=== PATIENT | female | born 1960 | race Hispanic/Latino ===

== ENCOUNTER 2021-03-18 09:14 | Inpatient (IN) | payer OTHER, SELFPAY ==
[~2021-03-18] VITALS: Ht 152.4 cm; Wt 60.1 kg
[2021-03-18 09:39] LABS: ABG BASE EXCESS 0.4 mmol/L (-2.0-3.0); ABG HCO3 21.6 mmol/L (21.0-28.0); ABG OXYGEN SATURATION 82.4 % (95.0-99.0); ABG PCO2 27 mmHg (32-45)
[2021-03-18 09:59] VITALS: BP 103/69
[2021-03-18 10:10] LABS: BASOPHILS % (AUTO) 0.7 % (0.0-5.0); EOSINOPHILS % (AUTO) 0.1 % (0.0-8.0); LYMPHOCYTES % (AUTO) 7.3 % (21.0-51.0); MEAN CORPUSCULAR HEMOGLOBIN 28.2 pg (27.0-33.0); MEAN CORPUSCULAR HGB CONC 34.4 g/dL (32.0-36.0); MEAN CORPUSCULAR VOLUME 82.1 fL (79-99); MONOCYTES % (AUTO) 6.5 % (3.0-13.0); NEUTROPHILS % (AUTO) 84.6 % (40.0-77.0); PLATELET COUNT (AUTO) 228 K/uL (130-400); RED BLOOD CELL COUNT(AUTO) 5.24 MIL/uL (4.00-5.50); WHITE BLOOD COUNT (AUTO) 7.2 K/uL (4.8-10.8)
[2021-03-18 10:20] LABS: CREATININE 0.9 mg/dL (0.5-1.5); POTASSIUM 4.8 mmol/L (3.5-5.1)
[2021-03-18] MEDS ORDERED: DEXAMETHASONE SOD PHOSPHATE 4 MG/ML 1ML VIAL ONE (10:20)
[2021-03-18] MEDS ORDERED: AZITHROMYCIN 500MG+NS 250ML 250 ML IV ONE (10:20)
[2021-03-18] MEDS ORDERED: CEFTRIAXONE 1G VIAL ONE (10:20)
[2021-03-18] MEDS ORDERED: 0.9% NACL 250ML IVPB ONE (10:30)
[2021-03-18] MEDS ORDERED: AZITHROMYCIN 500MG VIAL IVPB ONE (10:30)
[2021-03-18 10:33] LABS: ALBUMIN 2.9 g/dL (3.5-5.0); BILIRUBIN,TOTAL 0.7 mg/dL (0.2-1.0); TOTAL PROTEIN, SERUM 7.7 g/dL (6.0-8.3)
[2021-03-18 10:35] LABS: B-TYPE NATRIURETIC PEPTIDE < 5 pg/mL (0-100)
[2021-03-18] MEDS ORDERED: DEXAMETHASONE SOD PHOSPHATE 4 MG/ML 1ML VIAL IVP SCH (11:30)
[2021-03-18] MEDS ORDERED: CEFTRIAXONE 1G VIAL IVP ONE (11:30)
[2021-03-18] MEDS ORDERED: ONDANSETRON 4MG INJ IV PRN (12:00)
[2021-03-18] MEDS ORDERED: ACETAMINOPHEN 325 MG TAB PO PRN ×2 (12:00)
[2021-03-18] MEDS: CEFTRIAXONE 1G VIAL IVP SCH ×2 (12:23→13:03)
[2021-03-18] MEDS: DOXYCYCLINE 100MG+NS 250ML IV SCH (12:23)
[2021-03-18] MEDS: 0.9% NACL 250ML 250 ML IV SCH (12:23)
[2021-03-18] MEDS: SOLU-MEDROL 40MG VIAL IVP SCH ×2 (12:23→20:46)
[2021-03-18 15:20] VITALS: BP 110/61
[2021-03-18 16:00] VITALS: BP 110/61
[2021-03-18] MEDS: FAMOTIDINE 20MG VIAL IV SCH (20:47)
[2021-03-18] MEDS: ENOXAPARIN SODIUM 40 MG/0.4 ML SYRINGE SQ SCH (20:48)
[2021-03-18 21:00] VITALS: BP 99/55
[2021-03-18 22:00] VITALS: BP 97/57
[2021-03-18 23:00] VITALS: BP 93/58
[2021-03-19] VITALS (23 sets, daily range): BP systolic 92–114; BP diastolic 41–79
[2021-03-19] MEDS: DOXYCYCLINE 100MG+NS 250ML IV SCH ×3 (00:03→23:56)
[2021-03-19] MEDS: 0.9% NACL 250ML 250 ML IV SCH ×3 (00:03→23:56)
[2021-03-19] MEDS: SOLU-MEDROL 40MG VIAL IVP SCH ×3 (04:24→20:12)
[2021-03-19 04:29] LABS: BASOPHILS % (AUTO) 0.3 % (0.0-5.0); HEMATOCRIT 43.2 % (36-48); LYMPHOCYTES % (AUTO) 11.7 % (21.0-51.0); MEAN CORPUSCULAR HEMOGLOBIN 27.6 pg (27.0-33.0); MEAN CORPUSCULAR HGB CONC 32.9 g/dL (32.0-36.0); MONOCYTES % (AUTO) 5.2 % (3.0-13.0); NEUTROPHILS % (AUTO) 81.4 % (40.0-77.0); PLATELET COUNT (AUTO) 231 K/uL (130-400); RED BLOOD CELL COUNT(AUTO) 5.14 MIL/uL (4.00-5.50); RED CELL DISTRIBUTION WIDTH 13.8 % (11.0-15.5); WHITE BLOOD COUNT (AUTO) 6.3 K/uL (4.8-10.8)
[2021-03-19 04:39] LABS: ALBUMIN 2.3 g/dL (3.5-5.0); BILIRUBIN,TOTAL 0.5 mg/dL (0.2-1.0); CREATININE 0.8 mg/dL (0.5-1.5); CRP QUANTITATIVE 160.2 mg/L (0.00-9.0); POTASSIUM 4.2 mmol/L (3.5-5.1); TOTAL PROTEIN, SERUM 7.3 g/dL (6.0-8.3)
[2021-03-19] MEDS ORDERED: PHARMACY COMMUNICATION MISC SCH ×2 (09:00)
[2021-03-19] MEDS: ZINC SULFATE 220 CAPSULE PO SCH (09:37)
[2021-03-19] MEDS: ASCORBIC ACID 500 MG TAB PO SCH (09:37)
[2021-03-19] MEDS: ENOXAPARIN SODIUM 40 MG/0.4 ML SYRINGE SQ SCH ×2 (09:38→20:12)
[2021-03-19] MEDS: CEFTRIAXONE 1G VIAL IVP SCH ×2 (12:28→23:56)
[2021-03-19] MEDS ORDERED: COMPOUND IV REFRIGERATED 1 EACH IVSOLN MISC PRN (13:00)
[2021-03-19] MEDS ORDERED: REMDESIVIR (EUA) 520 200 MG in 0.9% NACL 250ML 250 ML IV ONE (13:00)
[2021-03-19] MEDS: BARICITINIB (EUA) 2 MG TABLET PO SCH (13:52)
[2021-03-19] MEDS: FAMOTIDINE 20MG VIAL IV SCH (20:12)
[2021-03-20] VITALS (18 sets, daily range): BP systolic 100–132; BP diastolic 60–98
[2021-03-20] MEDS: SOLU-MEDROL 40MG VIAL IVP SCH ×3 (04:07→20:16)
[2021-03-20 04:27] LABS: BASOPHILS % (AUTO) 0.2 % (0.0-5.0); HEMATOCRIT 36.5 % (36-48); LYMPHOCYTES % (AUTO) 7.5 % (21.0-51.0); MEAN CORPUSCULAR HGB CONC 33.7 g/dL (32.0-36.0); MONOCYTES % (AUTO) 5.9 % (3.0-13.0); NEUTROPHILS % (AUTO) 85.2 % (40.0-77.0); PLATELET COUNT (AUTO) 333 K/uL (130-400)
[2021-03-20 04:50] LABS: ALBUMIN 2.2 g/dL (3.5-5.0); BILIRUBIN,TOTAL 0.4 mg/dL (0.2-1.0); CREATININE 0.8 mg/dL (0.5-1.5); CRP QUANTITATIVE 72.9 mg/L (0.00-9.0); POTASSIUM 4.4 mmol/L (3.5-5.1); TOTAL PROTEIN, SERUM 6.6 g/dL (6.0-8.3)
[2021-03-20] MEDS: REMDESIVIR LABS MISC SCH (05:27)
[2021-03-20] MEDS: ENOXAPARIN SODIUM 40 MG/0.4 ML SYRINGE SQ SCH ×2 (09:01→20:15)
[2021-03-20] MEDS: ASCORBIC ACID 500 MG TAB PO SCH (09:01)
[2021-03-20] MEDS: BARICITINIB (EUA) 2 MG TABLET PO SCH (09:01)
[2021-03-20] MEDS: ZINC SULFATE 220 CAPSULE PO SCH (09:01)
[2021-03-20] MEDS: REMDESIVIR (EUA) 520 100 MG in 0.9% NACL 250ML 250 ML IV SCH (13:22)
[2021-03-20] MEDS: DOXYCYCLINE 100MG+NS 250ML IV SCH ×2 (13:22→23:38)
[2021-03-20] MEDS: 0.9% NACL 250ML 250 ML IV SCH ×2 (13:23→23:38)
[2021-03-20] MEDS: CEFTRIAXONE 1G VIAL IVP SCH ×2 (13:23→23:37)
[2021-03-20] MEDS: FAMOTIDINE 20MG VIAL IV SCH (20:16)
[2021-03-21 03:00] VITALS: BP 110/65
[2021-03-21] MEDS: SOLU-MEDROL 40MG VIAL IVP SCH ×3 (04:57→20:23)
[2021-03-21 05:35] LABS: BASOPHILS % (AUTO) 0.1 % (0.0-5.0); HEMATOCRIT 38.4 % (36-48); LYMPHOCYTES % (AUTO) 6.6 % (21.0-51.0); MEAN CORPUSCULAR HEMOGLOBIN 27.6 pg (27.0-33.0); MEAN CORPUSCULAR VOLUME 86.1 fL (79-99); MONOCYTES % (AUTO) 5.6 % (3.0-13.0); NEUTROPHILS % (AUTO) 86.9 % (40.0-77.0); PLATELET COUNT (AUTO) 364 K/uL (130-400); RED BLOOD CELL COUNT(AUTO) 4.46 MIL/uL (4.00-5.50); RED CELL DISTRIBUTION WIDTH 14.4 % (11.0-15.5); WHITE BLOOD COUNT (AUTO) 8.5 K/uL (4.8-10.8)
[2021-03-21 06:00] LABS: ALBUMIN 2.2 g/dL (3.5-5.0); BILIRUBIN,TOTAL 0.4 mg/dL (0.2-1.0); CREATININE 0.7 mg/dL (0.5-1.5); CRP QUANTITATIVE 46.7 mg/L (0.00-9.0); POTASSIUM 4.4 mmol/L (3.5-5.1); TOTAL PROTEIN, SERUM 6.4 g/dL (6.0-8.3)
[2021-03-21] MEDS: REMDESIVIR LABS MISC SCH (06:50)
[2021-03-21 08:10] VITALS: BP 122/72
[2021-03-21] MEDS: ASCORBIC ACID 500 MG TAB PO SCH (08:42)
[2021-03-21] MEDS: ZINC SULFATE 220 CAPSULE PO SCH (08:42)
[2021-03-21] MEDS: ENOXAPARIN SODIUM 40 MG/0.4 ML SYRINGE SQ SCH ×2 (08:43→20:23)
[2021-03-21] MEDS: BARICITINIB (EUA) 2 MG TABLET PO SCH (10:25)
[2021-03-21 12:18] VITALS: BP 124/75
[2021-03-21] MEDS: DOXYCYCLINE 100MG+NS 250ML IV SCH (12:27)
[2021-03-21] MEDS: CEFTRIAXONE 1G VIAL IVP SCH (12:27)
[2021-03-21] MEDS: 0.9% NACL 250ML 250 ML IV SCH (12:27)
[2021-03-21] MEDS: REMDESIVIR (EUA) 520 100 MG in 0.9% NACL 250ML 250 ML IV SCH (13:56)
[2021-03-21 19:41] VITALS: BP 103/59
[2021-03-21] MEDS: FAMOTIDINE 20MG VIAL IV SCH (20:23)
[2021-03-21 23:47] VITALS: BP 116/69
[2021-03-22] MEDS: CEFTRIAXONE 1G VIAL IVP SCH ×3 (00:09→23:30)
[2021-03-22] MEDS: DOXYCYCLINE 100MG+NS 250ML IV SCH ×3 (00:09→23:30)
[2021-03-22] MEDS: 0.9% NACL 250ML 250 ML IV SCH ×3 (00:09→23:30)
[2021-03-22 03:33] VITALS: BP 110/69
[2021-03-22 04:39] LABS: BASOPHILS % (AUTO) 0.1 % (0.0-5.0); HEMATOCRIT 35.9 % (36-48); LYMPHOCYTES % (AUTO) 4.6 % (21.0-51.0); MEAN CORPUSCULAR HEMOGLOBIN 28.2 pg (27.0-33.0); MEAN CORPUSCULAR HGB CONC 33.4 g/dL (32.0-36.0); MEAN CORPUSCULAR VOLUME 84.3 fL (79-99); MONOCYTES % (AUTO) 3.8 % (3.0-13.0); NEUTROPHILS % (AUTO) 90.7 % (40.0-77.0); PLATELET COUNT (AUTO) 415 K/uL (130-400); RED BLOOD CELL COUNT(AUTO) 4.26 MIL/uL (4.00-5.50); RED CELL DISTRIBUTION WIDTH 14.5 % (11.0-15.5)
[2021-03-22 04:51] LABS: ALBUMIN 2.1 g/dL (3.5-5.0); BILIRUBIN,TOTAL 0.4 mg/dL (0.2-1.0); CREATININE 0.6 mg/dL (0.5-1.5); CRP QUANTITATIVE 30.4 mg/L (0.00-9.0); TOTAL PROTEIN, SERUM 6.1 g/dL (6.0-8.3)
[2021-03-22] MEDS: ASCORBIC ACID 500 MG TAB PO SCH (07:42)
[2021-03-22] MEDS: SOLU-MEDROL 40MG VIAL IVP SCH ×2 (07:42→20:23)
[2021-03-22] MEDS: ZINC SULFATE 220 CAPSULE PO SCH (07:42)
[2021-03-22] MEDS: ENOXAPARIN SODIUM 40 MG/0.4 ML SYRINGE SQ SCH ×2 (07:43→20:23)
[2021-03-22 08:15] VITALS: BP 120/72
[2021-03-22] MEDS: BARICITINIB (EUA) 2 MG TABLET PO SCH (08:43)
[2021-03-22 11:59] VITALS: BP 141/78
[2021-03-22] MEDS: REMDESIVIR (EUA) 520 100 MG in 0.9% NACL 250ML 250 ML IV SCH (14:01)
[2021-03-22 16:00] VITALS: BP 127/72
[2021-03-22 20:21] VITALS: BP 124/72
[2021-03-22] MEDS: FAMOTIDINE 20MG VIAL IV SCH (20:23)
[2021-03-22 23:58] VITALS: BP 122/68
[2021-03-23 03:22] VITALS: BP 127/83
[2021-03-23 04:50] LABS: BASOPHILS % (AUTO) 0.1 % (0.0-5.0); EOSINOPHILS % (AUTO) 0.3 % (0.0-8.0); LYMPHOCYTES % (AUTO) 3.7 % (21.0-51.0); MEAN CORPUSCULAR HEMOGLOBIN 28.6 pg (27.0-33.0); MEAN CORPUSCULAR HGB CONC 33.5 g/dL (32.0-36.0); MEAN CORPUSCULAR VOLUME 85.3 fL (79-99); MONOCYTES % (AUTO) 2.8 % (3.0-13.0); NEUTROPHILS % (AUTO) 92.2 % (40.0-77.0); PLATELET COUNT (AUTO) 434 K/uL (130-400); RED BLOOD CELL COUNT(AUTO) 4.34 MIL/uL (4.00-5.50); RED CELL DISTRIBUTION WIDTH 14.4 % (11.0-15.5); WHITE BLOOD COUNT (AUTO) 15.3 K/uL (4.8-10.8)
[2021-03-23 05:07] LABS: ALBUMIN 2.2 g/dL (3.5-5.0); BILIRUBIN,TOTAL 0.5 mg/dL (0.2-1.0); CREATININE 0.6 mg/dL (0.5-1.5); CRP QUANTITATIVE 22.7 mg/L (0.00-9.0); POTASSIUM 4.4 mmol/L (3.5-5.1); TOTAL PROTEIN, SERUM 6.1 g/dL (6.0-8.3)
[2021-03-23] MEDS: REMDESIVIR LABS MISC SCH (06:27)
[2021-03-23 08:00] VITALS: BP 133/74
[2021-03-23] MEDS: BARICITINIB (EUA) 2 MG TABLET PO SCH (08:35)
[2021-03-23] MEDS: ZINC SULFATE 220 CAPSULE PO SCH (08:35)
[2021-03-23] MEDS: ASCORBIC ACID 500 MG TAB PO SCH (08:35)
[2021-03-23] MEDS: ENOXAPARIN SODIUM 40 MG/0.4 ML SYRINGE SQ SCH ×2 (08:36→19:54)
[2021-03-23] MEDS: SOLU-MEDROL 40MG VIAL IVP SCH ×3 (08:36→19:53)
[2021-03-23 12:00] VITALS: BP 115/79
[2021-03-23 12:04] LABS: INR 1.23 (0.85-1.15); PROTHROMBIN TIME 13.2 SEC (9.6-11.6)
[2021-03-23 12:06] LABS: PARTIAL THROMBOPLASTIN TIME 28.5 SEC (26.3-35.5)
[2021-03-23] MEDS: CEFTRIAXONE 1G VIAL IVP SCH ×2 (15:22→23:22)
[2021-03-23] MEDS: 0.9% NACL 250ML 250 ML IV SCH ×2 (15:23→23:22)
[2021-03-23] MEDS: REMDESIVIR (EUA) 520 100 MG in 0.9% NACL 250ML 250 ML IV SCH (15:23)
[2021-03-23] MEDS: DOXYCYCLINE 100MG+NS 250ML IV SCH ×2 (15:23→23:22)
[2021-03-23 16:00] VITALS: BP 122/73
[2021-03-23 19:35] VITALS: BP 122/70
[2021-03-23] MEDS: FAMOTIDINE 20MG VIAL IV SCH (19:53)
[2021-03-24] VITALS (8 sets, daily range): BP systolic 99–149; BP diastolic 53–84
[2021-03-24 04:41] LABS: BASOPHILS % (AUTO) 0.1 % (0.0-5.0); HEMATOCRIT 39.4 % (36-48); MEAN CORPUSCULAR HEMOGLOBIN 27.8 pg (27.0-33.0); MEAN CORPUSCULAR HGB CONC 32.5 g/dL (32.0-36.0); MEAN CORPUSCULAR VOLUME 85.5 fL (79-99); MONOCYTES % (AUTO) 2.6 % (3.0-13.0); NEUTROPHILS % (AUTO) 93.1 % (40.0-77.0); PLATELET COUNT (AUTO) 459 K/uL (130-400); RED BLOOD CELL COUNT(AUTO) 4.61 MIL/uL (4.00-5.50); RED CELL DISTRIBUTION WIDTH 14.3 % (11.0-15.5); WHITE BLOOD COUNT (AUTO) 14.4 K/uL (4.8-10.8)
[2021-03-24 05:05] LABS: ALBUMIN 2.2 g/dL (3.5-5.0); BILIRUBIN,TOTAL 0.4 mg/dL (0.2-1.0); CREATININE 0.6 mg/dL (0.5-1.5); POTASSIUM 4.4 mmol/L (3.5-5.1); TOTAL PROTEIN, SERUM 6.2 g/dL (6.0-8.3)
[2021-03-24] MEDS ORDERED: PHARMACY COMMUNICATION MISC SCH (09:30)
[2021-03-24] MEDS: BARICITINIB (EUA) 2 MG TABLET PO SCH (10:07)
[2021-03-24] MEDS: ASCORBIC ACID 500 MG TAB PO SCH (10:08)
[2021-03-24] MEDS: ZINC SULFATE 220 CAPSULE PO SCH (10:08)
[2021-03-24] MEDS: 0.9% NACL 250ML 250 ML IV SCH ×2 (12:01→23:52)
[2021-03-24] MEDS: DOXYCYCLINE 100MG+NS 250ML IV SCH ×2 (12:01→23:52)
[2021-03-24] MEDS: CEFTRIAXONE 1G VIAL IVP SCH ×2 (12:01→23:52)
[2021-03-24] MEDS ORDERED: COMPOUND IV REFRIGERATED 1 EACH IVSOLN MISC PRN (14:00)
[2021-03-24] MEDS: SOLU-MEDROL 40MG VIAL IVP SCH ×2 (14:52→21:38)
[2021-03-24] MEDS: REMDESIVIR (EUA) 520 100 MG in 0.9% NACL 250ML 250 ML IV SCH (14:52)
[2021-03-24] MEDS: FAMOTIDINE 20MG VIAL IV SCH (19:50)
[2021-03-24] MEDS: ENOXAPARIN SODIUM 40 MG/0.4 ML SYRINGE SQ SCH (19:55)
[2021-03-25 04:05] VITALS: BP 109/67
[2021-03-25 04:48] LABS: BASOPHILS % (AUTO) 0.2 % (0.0-5.0); HEMATOCRIT 41.1 % (36-48); LYMPHOCYTES % (AUTO) 4.7 % (21.0-51.0); MEAN CORPUSCULAR HEMOGLOBIN 28.2 pg (27.0-33.0); MEAN CORPUSCULAR HGB CONC 32.4 g/dL (32.0-36.0); MEAN CORPUSCULAR VOLUME 87.1 fL (79-99); MONOCYTES % (AUTO) 1.6 % (3.0-13.0); PLATELET COUNT (AUTO) 527 K/uL (130-400); RED BLOOD CELL COUNT(AUTO) 4.72 MIL/uL (4.00-5.50); RED CELL DISTRIBUTION WIDTH 14.6 % (11.0-15.5); WHITE BLOOD COUNT (AUTO) 10.4 K/uL (4.8-10.8)
[2021-03-25 05:06] LABS: ALBUMIN 2.1 g/dL (3.5-5.0); BILIRUBIN,TOTAL 0.5 mg/dL (0.2-1.0); CREATININE 0.6 mg/dL (0.5-1.5); CRP QUANTITATIVE 100.8 mg/L (0.00-9.0); POTASSIUM 4.9 mmol/L (3.5-5.1); TOTAL PROTEIN, SERUM 6.4 g/dL (6.0-8.3)
[2021-03-25] MEDS: SOLU-MEDROL 40MG VIAL IVP SCH ×3 (05:41→22:11)
[2021-03-25 08:16] VITALS: BP 104/75
[2021-03-25] MEDS: BARICITINIB (EUA) 2 MG TABLET PO SCH (09:00)
[2021-03-25] MEDS: ZINC SULFATE 220 CAPSULE PO SCH (09:00)
[2021-03-25] MEDS: ASCORBIC ACID 500 MG TAB PO SCH (09:00)
[2021-03-25] MEDS: ENOXAPARIN SODIUM 40 MG/0.4 ML SYRINGE SQ SCH ×2 (09:04→20:11)
[2021-03-25] MEDS: DOXYCYCLINE 100MG+NS 250ML IV SCH (11:42)
[2021-03-25] MEDS: 0.9% NACL 250ML 250 ML IV SCH ×2 (11:43→22:11)
[2021-03-25 12:41] VITALS: BP 116/71
[2021-03-25] MEDS: REMDESIVIR (EUA) 520 100 MG in 0.9% NACL 250ML 250 ML IV SCH (15:15)
[2021-03-25 16:36] VITALS: BP 105/57
[2021-03-25 20:02] VITALS: BP 133/75
[2021-03-25] MEDS: FAMOTIDINE 20MG VIAL IV SCH (20:11)
[2021-03-26] VITALS: BP 118/69
[2021-03-26 03:53] VITALS: BP 131/73
[2021-03-26] MEDS: SOLU-MEDROL 40MG VIAL IVP SCH ×3 (05:33→22:09)
[2021-03-26 07:31] VITALS: BP 118/70
[2021-03-26] MEDS: BARICITINIB (EUA) 2 MG TABLET PO SCH (09:07)
[2021-03-26] MEDS: ZINC SULFATE 220 CAPSULE PO SCH (09:08)
[2021-03-26] MEDS: ENOXAPARIN SODIUM 60 MG/0.6 ML SQ SCH ×2 (09:08→20:07)
[2021-03-26] MEDS: ASCORBIC ACID 500 MG TAB PO SCH (09:08)
[2021-03-26 11:30] VITALS: BP 112/80
[2021-03-26] MEDS: 0.9% NACL 250ML 250 ML IV SCH ×2 (12:00→23:06)
[2021-03-26] MEDS: REMDESIVIR (EUA) 520 100 MG in 0.9% NACL 250ML 250 ML IV SCH (13:14)
[2021-03-26 15:13] VITALS: BP 122/71
[2021-03-26 19:50] VITALS: BP 107/69
[2021-03-26] MEDS: FAMOTIDINE 20MG VIAL IV SCH (20:06)
[2021-03-27] VITALS (7 sets, daily range): BP systolic 106–141; BP diastolic 61–78
[2021-03-27] MEDS: SOLU-MEDROL 40MG VIAL IVP SCH (05:14)
[2021-03-27 05:19] LABS: BASOPHILS % (AUTO) 0.1 % (0.0-5.0); HEMATOCRIT 40.7 % (36-48); MEAN CORPUSCULAR HEMOGLOBIN 28.3 pg (27.0-33.0); MEAN CORPUSCULAR HGB CONC 32.7 g/dL (32.0-36.0); MEAN CORPUSCULAR VOLUME 86.6 fL (79-99); MONOCYTES % (AUTO) 2.3 % (3.0-13.0); NEUTROPHILS % (AUTO) 93.5 % (40.0-77.0); PLATELET COUNT (AUTO) 455 K/uL (130-400); RED CELL DISTRIBUTION WIDTH 14.6 % (11.0-15.5); WHITE BLOOD COUNT (AUTO) 14.8 K/uL (4.8-10.8)
[2021-03-27 05:38] LABS: ALBUMIN 2.3 g/dL (3.5-5.0); BILIRUBIN,TOTAL 0.7 mg/dL (0.2-1.0); CREATININE 0.6 mg/dL (0.5-1.5); CRP QUANTITATIVE 25.5 mg/L (0.00-9.0); MAGNESIUM 2.3 mg/dL (1.80-2.40); POTASSIUM 4.4 mmol/L (3.5-5.1); TOTAL PROTEIN, SERUM 6.1 g/dL (6.0-8.3)
[2021-03-27] MEDS: ENOXAPARIN SODIUM 60 MG/0.6 ML SQ SCH (09:11)
[2021-03-27] MEDS: BARICITINIB (EUA) 2 MG TABLET PO SCH (09:11)
[2021-03-27] MEDS: ZINC SULFATE 220 CAPSULE PO SCH (09:11)
[2021-03-27] MEDS: ASCORBIC ACID 500 MG TAB PO SCH (09:11)
[2021-03-27] MEDS: 0.9% NACL 250ML 250 ML IV SCH ×2 (11:49→21:01)
[2021-03-27] MEDS: REMDESIVIR (EUA) 520 100 MG in 0.9% NACL 250ML 250 ML IV SCH (14:08)
[2021-03-27] MEDS: NYSTATIN 100000 UNIT/ML 5ML UDCUP PO SCH ×3 (14:11→20:54)
[2021-03-27] MEDS ORDERED: FLUCONAZOLE 100 MG TAB PO SCH (14:24)
[2021-03-27] MEDS: FAMOTIDINE 20MG VIAL IV SCH (20:55)
[2021-03-27] MEDS: ENOXAPARIN SODIUM 30 MG/0.3 ML SQ SCH (20:55)
[2021-03-28] MEDS: SOLU-MEDROL 40MG VIAL IVP SCH ×2 (02:15→14:47)
[2021-03-28 04:01] VITALS: BP 125/72
[2021-03-28 07:00] VITALS: BP 125/73
[2021-03-28] MEDS: ASCORBIC ACID 500 MG TAB PO SCH (09:23)
[2021-03-28] MEDS: NYSTATIN 100000 UNIT/ML 5ML UDCUP PO SCH ×4 (09:23→20:26)
[2021-03-28] MEDS: ZINC SULFATE 220 CAPSULE PO SCH (09:23)
[2021-03-28] MEDS: BARICITINIB (EUA) 2 MG TABLET PO SCH (09:24)
[2021-03-28] MEDS: ENOXAPARIN SODIUM 30 MG/0.3 ML SQ SCH ×2 (09:24→20:25)
[2021-03-28 11:00] VITALS: BP 114/71
[2021-03-28] MEDS: 0.9% NACL 250ML 250 ML IV SCH ×2 (12:00→23:23)
[2021-03-28] MEDS: REMDESIVIR (EUA) 520 100 MG in 0.9% NACL 250ML 250 ML IV SCH (14:44)
[2021-03-28 16:00] VITALS: BP 131/70
[2021-03-28 19:53] VITALS: BP 129/72
[2021-03-28] MEDS: FAMOTIDINE 20MG VIAL IV SCH (20:25)
[2021-03-28 23:22] VITALS: BP 128/72
[2021-03-29] MEDS: SOLU-MEDROL 40MG VIAL IVP SCH ×2 (02:22→13:25)
[2021-03-29 04:06] VITALS: BP 110/64
[2021-03-29 04:40] LABS: BASOPHILS % (AUTO) 0.2 % (0.0-5.0); HEMATOCRIT 39.4 % (36-48); LYMPHOCYTES % (AUTO) 6.1 % (21.0-51.0); MEAN CORPUSCULAR HEMOGLOBIN 28.2 pg (27.0-33.0); MEAN CORPUSCULAR HGB CONC 33.2 g/dL (32.0-36.0); MEAN CORPUSCULAR VOLUME 84.7 fL (79-99); MONOCYTES % (AUTO) 3.5 % (3.0-13.0); NEUTROPHILS % (AUTO) 89.2 % (40.0-77.0); PLATELET COUNT (AUTO) 369 K/uL (130-400); RED BLOOD CELL COUNT(AUTO) 4.65 MIL/uL (4.00-5.50); RED CELL DISTRIBUTION WIDTH 14.1 % (11.0-15.5); WHITE BLOOD COUNT (AUTO) 11.6 K/uL (4.8-10.8)
[2021-03-29 04:58] LABS: ALBUMIN 2.3 g/dL (3.5-5.0); BILIRUBIN,TOTAL 0.7 mg/dL (0.2-1.0); CREATININE 0.5 mg/dL (0.5-1.5); CRP QUANTITATIVE 23.1 mg/L (0.00-9.0); POTASSIUM 4.5 mmol/L (3.5-5.1); TOTAL PROTEIN, SERUM 6.2 g/dL (6.0-8.3)
[2021-03-29 07:00] VITALS: BP 117/70
[2021-03-29] MEDS: ENOXAPARIN SODIUM 30 MG/0.3 ML SQ SCH ×2 (08:12→19:49)
[2021-03-29] MEDS: ASCORBIC ACID 500 MG TAB PO SCH (08:12)
[2021-03-29] MEDS: ZINC SULFATE 220 CAPSULE PO SCH (08:12)
[2021-03-29] MEDS: NYSTATIN 100000 UNIT/ML 5ML UDCUP PO SCH ×4 (08:12→19:48)
[2021-03-29] MEDS: BARICITINIB (EUA) 2 MG TABLET PO SCH (08:12)
[2021-03-29 11:00] VITALS: BP 117/77
[2021-03-29 15:00] VITALS: BP 124/86
[2021-03-29 19:44] VITALS: BP 110/84
[2021-03-29] MEDS: FAMOTIDINE 20MG VIAL IV SCH (19:48)
[2021-03-29 23:12] VITALS: BP 114/77
[2021-03-30] MEDS: SOLU-MEDROL 40MG VIAL IVP SCH ×2 (02:46→17:13)
[2021-03-30 03:19] VITALS: BP 120/76
[2021-03-30 04:33] LABS: BASOPHILS % (AUTO) 0.1 % (0.0-5.0); EOSINOPHILS % (AUTO) 0.1 % (0.0-8.0); HEMATOCRIT 40.4 % (36-48); LYMPHOCYTES % (AUTO) 7.1 % (21.0-51.0); MEAN CORPUSCULAR HEMOGLOBIN 28.4 pg (27.0-33.0); MEAN CORPUSCULAR HGB CONC 32.9 g/dL (32.0-36.0); MEAN CORPUSCULAR VOLUME 86.3 fL (79-99); MONOCYTES % (AUTO) 5.3 % (3.0-13.0); NEUTROPHILS % (AUTO) 86.7 % (40.0-77.0); PLATELET COUNT (AUTO) 342 K/uL (130-400); RED BLOOD CELL COUNT(AUTO) 4.68 MIL/uL (4.00-5.50); RED CELL DISTRIBUTION WIDTH 14.2 % (11.0-15.5); WHITE BLOOD COUNT (AUTO) 16.9 K/uL (4.8-10.8)
[2021-03-30 05:06] LABS: ALBUMIN 2.4 g/dL (3.5-5.0); BILIRUBIN,TOTAL 0.9 mg/dL (0.2-1.0); CREATININE 0.6 mg/dL (0.5-1.5); CRP QUANTITATIVE 7.9 mg/L (0.00-9.0); POTASSIUM 4.5 mmol/L (3.5-5.1); TOTAL PROTEIN, SERUM 6.3 g/dL (6.0-8.3)
[2021-03-30 08:00] VITALS: BP 124/71
[2021-03-30] MEDS: ZINC SULFATE 220 CAPSULE PO SCH (08:04)
[2021-03-30] MEDS: ASCORBIC ACID 500 MG TAB PO SCH (08:04)
[2021-03-30] MEDS: BARICITINIB (EUA) 2 MG TABLET PO SCH (08:04)
[2021-03-30] MEDS: ENOXAPARIN SODIUM 30 MG/0.3 ML SQ SCH ×2 (08:05→20:00)
[2021-03-30 12:42] VITALS: BP 119/75
[2021-03-30 16:00] VITALS: BP 110/78
[2021-03-30] MEDS: NYSTATIN 100000 UNIT/ML 5ML UDCUP PO SCH ×4 (17:00→20:00)
[2021-03-30] MEDS: FAMOTIDINE 20MG VIAL IV SCH (20:00)
[2021-03-30 21:07] VITALS: BP 112/78
[2021-03-31 00:08] VITALS: BP 111/77
[2021-03-31] MEDS: SOLU-MEDROL 40MG VIAL IVP SCH (03:36)
[2021-03-31 04:50] LABS: BASOPHILS % (AUTO) 0.1 % (0.0-5.0); HEMATOCRIT 39.9 % (36-48); LYMPHOCYTES % (AUTO) 7.1 % (21.0-51.0); MEAN CORPUSCULAR HEMOGLOBIN 28.5 pg (27.0-33.0); MEAN CORPUSCULAR HGB CONC 32.8 g/dL (32.0-36.0); MEAN CORPUSCULAR VOLUME 86.9 fL (79-99); MONOCYTES % (AUTO) 3.7 % (3.0-13.0); NEUTROPHILS % (AUTO) 88.4 % (40.0-77.0); PLATELET COUNT (AUTO) 311 K/uL (130-400); RED BLOOD CELL COUNT(AUTO) 4.59 MIL/uL (4.00-5.50); WHITE BLOOD COUNT (AUTO) 13.5 K/uL (4.8-10.8)
[2021-03-31 05:22] LABS: ALBUMIN 2.4 g/dL (3.5-5.0); BILIRUBIN,TOTAL 0.7 mg/dL (0.2-1.0); CREATININE 0.5 mg/dL (0.5-1.5); POTASSIUM 4.3 mmol/L (3.5-5.1); TOTAL PROTEIN, SERUM 6.3 g/dL (6.0-8.3)
[2021-03-31 08:00] VITALS: BP 110/72
[2021-03-31] MEDS: ZINC SULFATE 220 CAPSULE PO SCH (08:47)
[2021-03-31] MEDS: NYSTATIN 100000 UNIT/ML 5ML UDCUP PO SCH ×4 (08:47→21:15)
[2021-03-31] MEDS: ASCORBIC ACID 500 MG TAB PO SCH (08:47)
[2021-03-31] MEDS: BARICITINIB (EUA) 2 MG TABLET PO SCH (08:47)
[2021-03-31] MEDS: ENOXAPARIN SODIUM 30 MG/0.3 ML SQ SCH (08:48)
[2021-03-31 12:00] VITALS: BP 115/79
[2021-03-31 13:02] LABS: HEMOGLOBIN A1C 6.5 % (4.0-6.0)
[2021-03-31 16:00] VITALS: BP 126/95
[2021-03-31 20:10] VITALS: BP_SYST 117; BP_SYST 122; BP_DIAS 68; BP_DIAS 89
[2021-03-31] MEDS ORDERED: APIXABAN 2.5 MG TABLET PO SCH (21:00)
[2021-04-01] MEDS ORDERED: DEXAMETHASONE 4 MG TAB PO SCH (09:00)
[2021-04-01] MEDS ORDERED: PREDNISONE 20 MG TABLET PO SCH (09:00)
[2021-04-01] MEDS ORDERED: PANTOPRAZOLE 40 MG TAB DR PO SCH (09:00)
== END 2021-04-01 02:10 | DRG 177 ==
LOC: EDH 09:14 → EDHIP 09:15 → 4AH 15:35 → 2BH 20:20 → 2AH 03-21 06:47
PROVIDERS: ADMIT Internal Medicine; ATTEND Internal Medicine
PROC: XW033E5 Introduction of Remdesivir Anti-infective into Peripheral Vein, Percutaneous Approach, New Technology Group 5 (ICD-10-PCS; principal; 2021-03-19)
PROC: XW0DXM6 Introduction of Baricitinib into Mouth and Pharynx, External Approach, New Technology Group 6 (ICD-10-PCS; 2021-03-19)
PROC: 5A0935A Assistance with Respiratory Ventilation, Less than 24 Consecutive Hours, High Flow/Velocity Cannula (ICD-10-PCS; 2021-03-21)
PROC: 5A0935A Assistance with Respiratory Ventilation, Less than 24 Consecutive Hours, High Flow/Velocity Cannula (ICD-10-PCS; 2021-03-22)
PROC: 5A0935A Assistance with Respiratory Ventilation, Less than 24 Consecutive Hours, High Flow/Velocity Cannula (ICD-10-PCS; 2021-03-23)
PROC: 5A0935A Assistance with Respiratory Ventilation, Less than 24 Consecutive Hours, High Flow/Velocity Cannula (ICD-10-PCS; 2021-03-24)
PROC: 5A0935A Assistance with Respiratory Ventilation, Less than 24 Consecutive Hours, High Flow/Velocity Cannula (ICD-10-PCS; 2021-03-29)
PROC: 5A0935A Assistance with Respiratory Ventilation, Less than 24 Consecutive Hours, High Flow/Velocity Cannula (ICD-10-PCS; 2021-03-30)
PROC: 5A0935A Assistance with Respiratory Ventilation, Less than 24 Consecutive Hours, High Flow/Velocity Cannula (ICD-10-PCS; 2021-03-31)
DX: U07.1 COVID-19 (principal); J12.82 Pneumonia due to coronavirus disease 2019; J80 Acute respiratory distress syndrome; E87.1 Hypo-osmolality and hyponatremia; D68.69 Other thrombophilia; R49.0 Dysphonia; E66.3 Overweight; Z91.19 Patient's noncompliance with other medical treatment and regimen; Z90.49 Acquired absence of other specified parts of digestive tract; Z68.26 Body mass index [BMI] 26.0-26.9, adult
CPT/HCPCS: 36415; 36600; 71045; 80053; 82550; 82803; 82948; 83036; 83735; 83880; 84145; 84484; 85025; 85378; 85610; 85730; 86140; 87635; 93005; 93970; 97039; G0378; J0456; J0696; J1100; J1650; J2920; J3490; J7050